=== PATIENT | male | born 1995 | race Caucasian/White ===

== ENCOUNTER 2025-01-02 10:18 | Emergency (ER) | payer BC ==
[~2025-01-02] VITALS: Ht 175.3 cm; Wt 79.4 kg
[2025-01-02 10:26] VITALS: BP 151/86; TEMP 98
--- NOTE | 2025-01-02 10:57 | Physician Documentation ---
History of Present Illness ~ Chief Complaint: Leg Pain Stated Complaint: HAMSTRING PAIN Time Seen by MD: 10:43 Source: patient Mode of Arrival: Ambulatory Exam Limitations: no limitations HPI 29-year-old male who is here with left hamstring pain the proximal aspect of his hamstring has been painful since he was sprinting earlier this morning about an hour prior to arrival at the ER. He states he felt a pop in the proximal part of his hamstring where his pain is at. He is able to move his leg but states his range of motion is diminished when he tries to bring his thigh up towards his chest due to the pain that he has in his hamstring. He denies any bruising, swelling. Denies back pain. No pre arrival treatment. Tetanus witin 5 years: No Past Medical History Past Medical History: No Pertinent History Past Surgical History: noncontributory Drug Use: none Lives In: Home Occupation: employed Review of Systems All Other Systems at this time: Reviewed and Negative Physical Exam Vital Signs: Temperature: 98.0, Source: Temporal, Heart Rate: 115, Respiratory Rate: 20, BP: 151/86, Pulse Oximetry: 97, Weight: 79.400 Physical Exam GENERAL: Alert, no acute distress. HEENT: NCAT, EOMI, PERRL. NECK: Supple, trachea midline. CARDIAC: Regular rate and rhythm, no murmurs, rubs, or gallops. PV: Equal distal pulses. No lower extremity edema, cap refill less than 2 seconds. RESPIRATORY: Equal breath sounds, clear to auscultation bilaterally, no respiratory distress. MUSCULOSKELETAL: ACTIVE RANGE MOTION OF LEFT LEG IS DECREASED WHEN HE FLEXES HIS KNEE UP TOWARDS HIS CHEST DUE TO THE PAIN IN HIS PROXIMAL LEFT HAMSTRING. PROXIMAL LEFT HAMSTRING IS TENDER TO PALPATION AND THERE IS A SMALL LOCALIZED AREA OF SWELLING NO ECCHYMOSIS OR ERYTHEMA. AMBULATING FAVORING RIGHT LEG, KEEPING LEFT LEG STRAIGHT. NEUROLOGICAL: Awake, alert, and oriented x 3. SKIN: Warm/dry, no pallor, no rash. PSYCH: Alert and appropriate. Affect congruent with mood. Speech is clear. Good eye contact. Progress Results/Orders Results/Orders Orders - SANJEEV CLAROS General Nursing Order (01/02/25 ) Vital Signs 01/02/25 10:26 Temp 98.0 Pulse 115 Resp 20 B/P (MAP) 151/86 Pulse Ox 97 Medical Decision Making General Diff Dx:Considerations: Include: Abrasion, Contusion, Fracture, Hematoma, Laceration, Malunion, Neurovascular injury, Open fracture, Sprain, Ulcer Departure Time of Disposition: 10:57 Disposition: 01 HOME / SELF CARE / HOMELESS Impression: Primary Impression: Hamstring injury Qualified Codes: S76.302A - Unspecified injury of muscle, fascia and tendon of the posterior muscle group at thigh level, left thigh, initial encounter Additional Impression: Leg pain, left Condition: Stable Discharge Instructions: RICE Therapy for Routine Care of Injuries, [id number] Additional Instructions: F/U WITH PRIMARY CARE PROVIDER IF YOU NEED MORE TIME OFF OF WORK AND PAIN IS NOT IMPROVING WARRANTING [facility] STUDIES USUALLY HAMSTRINGS TEARS HEAL ON THEIR OWN BUT OF COURSE IT DEPENDS ON THE EXTEND OF THE INJURY Departure Forms: Excuse form Work or School Excused From: Work Excuse beginning now through the following date: Jan 05, 2025 May Return to full physical activity as of: Jan 06, 2025 Referrals: NO PRIMARY CARE PROVIDER (PCP) Education Educated: Patient Educated regarding: diagnosis, treatment, need for follow up Signature Scribe Signature: X Attestation: SANJEEV PRITCHARD Jan 02, 2025 10:57
[2025-01-02 11:04] VITALS: PULSE 109; RESP 16; O2SAT 99
== END 2025-01-02 11:05 | disposition home or self-care (01) ==
LOC: ER 10:19
DX: S79.822A Other specified injuries of left thigh, initial encounter (principal); M79.605 Pain in left leg; X58.XXXA Exposure to other specified factors, initial encounter; Y93.89 Activity, other specified; Y92.89 Other specified places as the place of occurrence of the external cause; Y99.8 Other external cause status
CPT/HCPCS: 99281; 99283